=== PATIENT | female | born 1970 | race Caucasian/White ===

== ENCOUNTER 2017-01-30 06:02 | Emergency (ER) | payer OTHER ==
[2017-01-30 06:53] LABS: BASOPHIL % 0.3 % (0-2); PLATELET COUNT 211 x10^3mcL (130-400)
[2017-01-30 06:55] LABS: RED CELL DISTRIBUTION WIDTH 15.3 % (11.5-14.5)
[2017-01-30 06:59] LABS: CALCIUM 8.4 mg/dL (8.5-10.1); CARBON DIOXIDE 25.9 mmol/L (21-32); CHLORIDE SERUM 102 mmol/L (98-107); CREATININE SERUM 0.6 mg/dL (0.6-1.0); GFR1 > 60 mL/min; GLUCOSE SERUM 78 mg/dL (74-106); POTASSIUM SERUM 3.4 mmol/L (3.5-5.1); SODIUM SERUM 136 mmol/L (136-145)
[2017-01-30 07:05] LABS: ALBUMIN 3.4 g/dL (3.4-5.0); ALKALINE PHOSPHATASE 66 U/L (46-116); ALT/SGPT 19 U/L (14-59); AST/SGOT 21 U/L (15-37); BILIRUBIN TOTAL 0.35 mg/dL (0.20-1.00)
[2017-01-30 07:06] VITALS: BP 105/75
[2017-01-30 07:06] LABS: TOTAL PROTEIN, SERUM 8.4 g/dL (6.4-8.2)
[2017-01-30 07:11] LABS: UA SPECIFIC GRAVITY 1.015 (1.005-1.035); urine erythrocyte NEGATIVE (NEGATIVE)
[2017-01-30 08:11] LABS: microscopic required? YES
== END 2017-01-30 07:56 | disposition home or self-care (01) ==
LOC: ED 06:02
PROVIDERS: Emergency Medicine
DX: J40 Bronchitis, not specified as acute or chronic (principal); J02.9 Acute pharyngitis, unspecified; I10 Essential (primary) hypertension; R19.7 Diarrhea, unspecified; M79.1 Myalgia; M34.9 Systemic sclerosis, unspecified
CPT/HCPCS: 83880; 87804; Q0092